=== PATIENT | male | born 1995 | race Caucasian/White ===

== ENCOUNTER → 2017-12-12 | Outpatient (CLI) | payer OTHER ==
[2017-12-12 12:54] LABS: BASOPHILS ABSOLUTE AUTO 0.04 K/mm3 (0.00-0.23); BASOPHILS PERCENT AUTO 0 % (0-2); EOSINOPHILS ABSOLUTE AUTO 0.19 K/mm3 (0.00-0.68); EOSINOPHILS PERCENT AUTO 2 % (0-6); Hematocrit 42.1 % (37.0-53.0); Hemoglobin 14.5 g/dL (13.5-17.5); IMMATURE GRAN ABSOLUTE AUTO 0.03 K/mm3 (0.00-0.10); IMMATURE GRAN PERCENT AUTO 0 % (0-1); LYMPHOCYTES ABSOLUTE AUTO 3.37 K/mm3 (0.84-5.20); LYMPHOCYTES PERCENT AUTO 38 % (21-46); MONOCYTES ABSOLUTE AUTO 0.55 K/mm3 (0.16-1.47); MONOCYTES PERCENT AUTO 6 % (4-13); Mean Corpuscular HGB 30.1 pg (26.0-34.0); Mean Corpuscular HGB Conc 34.4 g/dL (31.5-36.5); Mean Corpuscular Volume 87 fL (80-100); Mean Platelet Volume 12.4 fL (9.1-12.4); NEUTROPHILS ABSOLUTE AUTO 4.79 K/mm3 (1.96-9.15); NEUTROPHILS PERCENT AUTO 54 % (41-73); Platelet Count 168 K/mm3 (150-400); Red Blood Cell Count 4.82 M/mm3 (4.30-5.90); White Blood Cell Count 8.97 K/mm3 (4.00-11.30)
== END ==
LOC: LAB SHORT 12:49 → LAB EV 12:49
PROVIDERS: Physician Assistant
DX: M54.2 Cervicalgia (principal)
CPT/HCPCS: 85025

== ENCOUNTER 2018-09-23 10:32 | Observation (INO) | payer OTHER ==
[~2018-09-23] VITALS: Ht 188 cm; Wt 81.7 kg
[2018-09-23 11:35] LABS: BASOPHILS ABSOLUTE AUTO 0.02 K/mm3 (0.00-0.23); BASOPHILS PERCENT AUTO 0 % (0-2); EOSINOPHILS ABSOLUTE AUTO 0.08 K/mm3 (0.00-0.68); EOSINOPHILS PERCENT AUTO 1 % (0-6); Hematocrit 48.1 % (37.0-53.0); Hemoglobin 17.4 g/dL (13.5-17.5); IMMATURE GRAN ABSOLUTE AUTO 0.05 K/mm3 (0.00-0.10); IMMATURE GRAN PERCENT AUTO 1 % (0-1); LYMPHOCYTES ABSOLUTE AUTO 2.22 K/mm3 (0.84-5.20); LYMPHOCYTES PERCENT AUTO 23 % (21-46); MONOCYTES PERCENT AUTO 7 % (4-13); Mean Corpuscular HGB 32.2 pg (26.0-34.0); Mean Corpuscular HGB Conc 36.2 g/dL (31.5-36.5); Mean Corpuscular Volume 89 fL (80-100); Mean Platelet Volume 12.8 fL (9.1-12.4); NEUTROPHILS PERCENT AUTO 69 % (41-73); Platelet Count 177 K/mm3 (150-400); RDW Coefficient Variation 12.1 % (11.7-14.2); RDW Standard Deviation 39.5 fL (35.1-46.3); Red Blood Cell Count 5.41 M/mm3 (4.30-5.90); White Blood Cell Count 9.87 K/mm3 (4.00-11.30)
[2018-09-23 11:53] LABS: Alanine Aminotransfer (ALT/SGP 21 U/L (12-78); Albumin, Blood 4.1 g/dL (3.4-5.0); Albumin/Globulin Ratio 1.1 (0.8-1.8); Alk Phos 79 U/L (50-136); Anion Gap 9 mmol/L (6-16); Aspartate Aminotrans (AST/SGOT 13 U/L (12-37); Blood Urea Nitrogen 7 mg/dL (8-24); Bun/Creatinine Ratio 7.5 (12.0-20.0); CO2, Blood 23 mmol/L (21-32); Chloride, Blood 108 mmol/L (98-108); Creatinine, Blood 0.94 mg/dL (0.60-1.20); Ethanol (Alcohol), Blood, Med <3 mg/dL; Globulin, Blood 3.8 g/dL (2.2-4.0); Glomerular Filtration Rate >60 (60-); Glucose, Blood 108 mg/dL (70-99); Potassium, Blood 3.2 mmol/L (3.5-5.5); Sodium, Blood 140 mmol/L (136-145); Total Protein, Blood 7.9 g/dL (6.4-8.2)
[2018-09-23 12:01] LABS: Acetaminophen, Random <2.0 ug/mL (10.0-30.0)
[2018-09-23 15:53] LABS: Source, Urine Clean Catch
[2018-09-23 16:06] LABS: Appearance, Urine Cloudy (Clear); Bilirubin, Urine Neg (Neg); Blood, Urine Neg (Neg); Color, Urine Yellow (P-Yellow); Glucose Qualitative, Urine Neg (Neg); Ketones, Urine Neg (Neg); Leukocyte Esterase, Urine Neg (Neg); Nitrite, Urine Neg (Neg); Protein, Urine Neg (Neg); Specific Gravity, Urine 1.015 (1.003-1.022); Urobilinogen, Urine NORM (Normal)
[2018-09-23 16:14] LABS: Bacteria Rare /hpf; Red Blood Cells, Urine Not Seen /hpf (0-2); Squamous Epithelial Cells Rare /hpf (Few); White Blood Cells, Urine Not Seen /hpf (0-5)
[2018-09-23 16:23] LABS: U Amphetamine Screen Not Detected; U Barbituate Screen Not Detected; U Benzodiazapine Screen Not Detected; U Buprenorphine Screen Not Detected; U Cannabinoids Screen DETECTED; U Cocaine Screen Not Detected; U Methadone Screen Not Detected; U Methamphetamine Screen Not Detected; U Opiates Screen Not Detected; U Oxycodone Screen Not Detected; U Phencyclidine Screen Not Detected; U Propoxyphene Screen Not Detected
== END 2018-09-25 20:15 ==
LOC: ER 10:32 → EOR 10:33
PROVIDERS: ADMIT Emergency Medicine
DX: F23 Brief psychotic disorder (principal); F12.99 Cannabis use, unspecified with unspecified cannabis-induced disorder; Z79.899 Other long term (current) drug therapy
CPT/HCPCS: 36415; 80053; 81001; 84443; 85025; 96360; 99285-25; G0378; G0480; J7120; Q3014

== ENCOUNTER 2021-09-16 09:21 | Inpatient (IN) | payer OTHER ==
[~2021-09-16] VITALS: Ht 188 cm; Wt 111.1 kg
[2021-09-16 11:15] LABS: Troponin I <0.015 ng/mL (0.000-0.040)
[2021-09-16 11:16] LABS: Alanine Aminotransfer (ALT/SGP 130 U/L (12-78); Albumin, Blood 1.9 g/dL (3.4-5.0); Albumin/Globulin Ratio 0.3 (0.8-1.8); Alk Phos 306 U/L (50-136); Anion Gap 8 mmol/L (6-16); Aspartate Aminotrans (AST/SGOT 223 U/L (12-37); Bilirubin, Total 5.5 mg/dL (0.1-1.0); Blood Urea Nitrogen 5 mg/dL (8-24); Bun/Creatinine Ratio 5.9 (12.0-20.0); CO2, Blood 18 mmol/L (21-32); Calcium, Blood 9.4 mg/dL (8.5-10.1); Chloride, Blood 93 mmol/L (98-108); Creatinine, Blood 0.85 mg/dL (0.60-1.20); Globulin, Blood 6.6 g/dL (2.2-4.0); Glomerular Filtration Rate >60 (60-); Glucose, Blood 100 mg/dL (70-99); Potassium, Blood 5.6 mmol/L (3.5-5.5); Sodium, Blood 119 mmol/L (136-145); Total Protein, Blood 8.5 g/dL (6.4-8.2)
[2021-09-16 11:39] LABS: Influenza A, PCR NEGATIVE (NEGATIVE); Influenza B, PCR NEGATIVE (NEGATIVE); Resp Syncytial Virus, PCR NEGATIVE (NEGATIVE); SARS-Cov-2 (COVID-19) PCR, MMC NEGATIVE (NEGATIVE)
[2021-09-16 11:51] LABS: Hematocrit 41.8 % (37.0-53.0); Hemoglobin 14.8 g/dL (13.5-17.5); Mean Corpuscular HGB 37.2 pg (26.0-34.0); Mean Corpuscular HGB Conc 35.4 g/dL (31.5-36.5); Mean Corpuscular Volume 105 fL (80-100); RDW Coefficient Variation 17.8 % (11.7-14.2); RDW Standard Deviation 66.6 fL (35.1-46.3); Red Blood Cell Count 3.98 M/mm3 (4.30-5.90)
[2021-09-16 12:32] LABS: White Blood Cell Count 12.93 K/mm3 (4.00-11.30)
[2021-09-16 12:33] LABS: NRBC ABSOLUTE 0.08 K/mm3 (0.00-0.02); NRBC Auto 0.6 /100 WBC (0.0-0.2); Platelet Count 48 K/mm3 (150-400)
[2021-09-16 12:38] LABS: BAND PERCENT MAN 11 % (0-8); BASOPHILS PERCENT MAN 0 % (0-2); EOSINOPHILS PERCENT MAN 0 % (0-6); LYMPHOCYTES ABSOLUTE MAN 1.03 K/mm3 (0.84-5.20); LYMPHOCYTES PERCENT MAN 8 % (21-46); METAMYELOCYTE ABSOLUTE MAN 0.12 K/mm3 (0.00-0.00); METAMYELOCYTE PERCENT MAN 1 % (0-0); MONOCYTES ABSOLUTE MAN 0.77 K/mm3 (0.16-1.47); MONOCYTES PERCENT MAN 6 % (4-13); MYELOCYTE ABSOLUTE MAN 0.25 K/mm3 (0.00-0.00); MYELOCYTE PERCENT MAN 2 % (0-0); NEUTROPHILS ABSOLUTE MAN 10.73 K/mm3 (1.96-9.15); SEG NEUTROPHILS PERCENT MAN 72 % (41-73); TOTAL CELLS COUNTED 100
[2021-09-16] MEDS ORDERED: LATUDA PO (12:51)
[2021-09-16] MEDS ORDERED: QUETIAPINE FUM200 M8 PO (12:52)
[2021-09-16] MEDS ORDERED: CATAPRES0.1 MG PO (12:52)
[2021-09-16 13:29] LABS: International Normalized Ratio 1.53; Prothrombin Time Results 15.6 Sec (9.7-11.5)
[2021-09-16 13:52] LABS: Ethanol (Alcohol), Blood, Med <3 mg/dL
[2021-09-16 13:56] LABS: Acetaminophen, Random <2.0 ug/mL (10.0-30.0)
--- NOTE | 2021-09-16 16:00 | NUR ---
ADMIT NOTE PT ADMITTED FOR ALCOHOLIC HEP, REPORT RECIEVED FROM ER AND PT ARRIVED TO ROOM VIA W/C AND TRANSFERRED IND TO TO BED. PT ORIENTED TO ROOM, CALL LIGHT SYSTEM, PHONE AND BED CONTROLS. PT ACCOMPANNIED BY FATHER AND ADMIT HISTORY AND MED LIST COMPLETED. PT SCORED 12 ON CIWA AND WAS MEDICATED PER EMAR WITH ATIVAN. PT WAS INSTRUCTED TO CALL FOR ANY ASSISTANCE UP OUT OF BED. PT APPEARS TO BE RESTING COMFORTABLY, BED IN LOWEST POSITION, BED EXIT ALARM INITIATED AND CALL LIGHT WITHIN REACH.
[2021-09-16 16:04] LABS: Albumin, Blood 1.8 g/dL (3.4-5.0); Anion Gap 8 mmol/L (6-16); Blood Urea Nitrogen 5 mg/dL (8-24); Bun/Creatinine Ratio 5.5 (12.0-20.0); CO2, Blood 19 mmol/L (21-32); Calcium, Blood 8.5 mg/dL (8.5-10.1); Chloride, Blood 94 mmol/L (98-108); Creatinine, Blood 0.91 mg/dL (0.60-1.20); Glomerular Filtration Rate >60 (60-); Glucose, Blood 106 mg/dL (70-99); Potassium, Blood 4.6 mmol/L (3.5-5.5); Sodium, Blood 121 mmol/L (136-145)
[2021-09-16 17:44] LABS: U Amphetamine Screen Not Detected; U Barbituate Screen Not Detected; U Benzodiazapine Screen DETECTED; U Buprenorphine Screen Not Detected; U Cannabinoids Screen DETECTED; U Cocaine Screen Not Detected; U Methadone Screen Not Detected; U Methamphetamine Screen Not Detected; U Opiates Screen Not Detected; U Oxycodone Screen Not Detected; U Phencyclidine Screen Not Detected; U Propoxyphene Screen Not Detected
[2021-09-16] MEDS ORDERED: OMEP20ER PO (18:08)
[2021-09-16] MEDS ORDERED: IBUP800 PO (18:08)
[2021-09-17 05:08] LABS: BASOPHILS ABSOLUTE AUTO 0.05 K/mm3 (0.00-0.23); BASOPHILS PERCENT AUTO 0 % (0-2); EOSINOPHILS ABSOLUTE AUTO 0.07 K/mm3 (0.00-0.68); EOSINOPHILS PERCENT AUTO 1 % (0-6); Hematocrit 36.6 % (37.0-53.0); Hemoglobin 12.9 g/dL (13.5-17.5); IMMATURE GRAN ABSOLUTE AUTO 0.65 K/mm3 (0.00-0.10); IMMATURE GRAN PERCENT AUTO 5 % (0-1); LYMPHOCYTES ABSOLUTE AUTO 2.29 K/mm3 (0.84-5.20); LYMPHOCYTES PERCENT AUTO 17 % (21-46); MONOCYTES ABSOLUTE AUTO 1.86 K/mm3 (0.16-1.47); MONOCYTES PERCENT AUTO 14 % (4-13); Mean Corpuscular HGB Conc 35.2 g/dL (31.5-36.5); Mean Corpuscular Volume 105 fL (80-100); NEUTROPHILS ABSOLUTE AUTO 8.32 K/mm3 (1.96-9.15); NEUTROPHILS PERCENT AUTO 63 % (41-73); NRBC ABSOLUTE 0.07 K/mm3 (0.00-0.02); NRBC Auto 0.5 /100 WBC (0.0-0.2); RDW Coefficient Variation 18.3 % (11.7-14.2); RDW Standard Deviation 67.7 fL (35.1-46.3); Red Blood Cell Count 3.49 M/mm3 (4.30-5.90); White Blood Cell Count 13.24 K/mm3 (4.00-11.30)
[2021-09-17 05:24] LABS: Platelet Count 45 K/mm3 (150-400)
[2021-09-17 06:29] LABS: Alanine Aminotransfer (ALT/SGP 106 U/L (12-78); Albumin, Blood 1.6 g/dL (3.4-5.0); Albumin/Globulin Ratio 0.3 (0.8-1.8); Alk Phos 249 U/L (50-136); Anion Gap 10 mmol/L (6-16); Aspartate Aminotrans (AST/SGOT 172 U/L (12-37); Bilirubin, Total 4.6 mg/dL (0.1-1.0); Blood Urea Nitrogen 7 mg/dL (8-24); Bun/Creatinine Ratio 6.1 (12.0-20.0); CO2, Blood 20 mmol/L (21-32); Calcium, Blood 8.7 mg/dL (8.5-10.1); Chloride, Blood 96 mmol/L (98-108); Creatinine, Blood 1.15 mg/dL (0.60-1.20); Globulin, Blood 5.2 g/dL (2.2-4.0); Glomerular Filtration Rate >60 (60-); Glucose, Blood 83 mg/dL (70-99); Magnesium, Blood 1.4 mg/dL (1.6-2.4); Phosphorus, Blood 3.1 mg/dL (2.5-4.9); Potassium, Blood 4.6 mmol/L (3.5-5.5); Sodium, Blood 126 mmol/L (136-145); Total Protein, Blood 6.8 g/dL (6.4-8.2)
[2021-09-17 15:36] LABS: International Normalized Ratio 1.41; Prothrombin Time Results 14.5 Sec (9.7-11.5)
--- NOTE | 2021-09-17 17:28 | NUR ---
SHIFT SUMMARY 25 Y MALE PT ADMITTED FOR ALCOHOL HEP. PT HAS BEEN DROWSY T/O SHIFT, ABLE TO ANSWER QUESTION APPROPRIATELY BY VERY FORGETFULL AND IMPULSIVE. PT CONT TO TRY AND GET UP OUT OF BED WITHOUT ASSISTANCE AND STAGGERED AROUNG ROOM, GETTING TANGLED UP IN BLANKETS AND IV. PT DID HAVE DIARRHEA EARLY IN THE SHIFT AND WAS ATTEMPTING TO GET TO THE BATHROOM BUT WAS INC OF BOWELS. PT WAS SHOWRED AND ROOM AND BATHROOM CLEANED. PT PULLED 2 IV'S OUT DURING SHIFT. PT CONT SCORING 12 ON HIS CIWA ASSESSMENT AND WAS FOUND TO BE TACHY IN THE 120'S WITH A RESP RATE OF 24. MD NOTIFIED AND NEW ORDERS RECEIVED AND IMPLEMENTED. PT PUT IN A ADDIE VEST RESTRAINT FOR HIS SAFETY AND TO PROTECT PT LINES. VEST RESTRAINT EXPLAINED TO PT AND HIS FAMILY AT BEDSIDE AND THEY BOTH VERBALIZXED UNDERSTANDING AND AGREED. PT HAS BEEN MEDICATED PER EMAR TO MANAGE ETOH W/DRAWL SYMPTOMS. RT WAS CONSULTED AND IN TO EVAL, PT PLACED ON 2L N/C FOR COMFORT AND SOB. NO OTHER CHANGES TO REPORT THIS SHIFT.
--- NOTE | 2021-09-18 01:44 | NUR ---
IMPULSIVE/CONFUSED *LATE ENTRY* AT BEGINNING OF SHIFT PT WAS FOUND IN RESTROOM BY LOCATION DIRECTOR COVERED IN BM & BLOOD ALLOVER BODY & FLOOR. PT HAD DISCONNECTED IV & TAKEN ADDIE OFF TO GET HIMSELF IN SHOWER. PT VERY CONFUSED. HE WAS CLEANED UP, GIVEN IV ATIVAN FOR FEELING ANXIOUS & CIWA @14. BED ALARM & ADDIE PLACED FOR SAFETY. WILL MONITOR.
--- NOTE | 2021-09-18 04:06 | NUR ---
SHIFT SUMMARY AOX3-SELF, PLACE, SITUATION. UNAWARE DATE & FORGETFUL. IMPULSIVE. HAS DIFFICULTY FOLLOWING DIRECTIONS @TIMES. VSS. TELE ST HR 118. SPO2 >90% ON 2L O2. REPORTS MCELROY, MILD NAUSEA, HAS TREMORS, LIGHT SENSITIVITY, ANXIOUS, RESTLESS. CIWA RANGING 7-14, MEDICATED 2X c 2MG IV ATIVAN & 1X c SCHEDULED LIBRIUM. PT ABLE TO REST WELL MOST OF NIGHT. ABD MOD DISTENDED, PT HAD 2 LIQUID INCONT STOOLS THIS SHIFT. PLAN TO HAVE PARACENTESIS TODAY 09/18/20. CALL LIGHT & BED ALARM IN PLACE FOR SAFETY. WCTM UNTIL DAY NURSE ASSUMES CARE.
[2021-09-18 04:49] LABS: BASOPHILS ABSOLUTE AUTO 0.08 K/mm3 (0.00-0.23); BASOPHILS PERCENT AUTO 1 % (0-2); EOSINOPHILS ABSOLUTE AUTO 0.08 K/mm3 (0.00-0.68); EOSINOPHILS PERCENT AUTO 1 % (0-6); Hematocrit 36.7 % (37.0-53.0); Hemoglobin 12.8 g/dL (13.5-17.5); IMMATURE GRAN ABSOLUTE AUTO 0.71 K/mm3 (0.00-0.10); IMMATURE GRAN PERCENT AUTO 5 % (0-1); LYMPHOCYTES ABSOLUTE AUTO 2.17 K/mm3 (0.84-5.20); LYMPHOCYTES PERCENT AUTO 16 % (21-46); MONOCYTES PERCENT AUTO 12 % (4-13); Mean Corpuscular HGB 36.5 pg (26.0-34.0); Mean Corpuscular HGB Conc 34.9 g/dL (31.5-36.5); Mean Corpuscular Volume 105 fL (80-100); NEUTROPHILS ABSOLUTE AUTO 9.09 K/mm3 (1.96-9.15); NEUTROPHILS PERCENT AUTO 66 % (41-73); NRBC ABSOLUTE 0.07 K/mm3 (0.00-0.02); NRBC Auto 0.5 /100 WBC (0.0-0.2); RDW Coefficient Variation 18.8 % (11.7-14.2); RDW Standard Deviation 69.7 fL (35.1-46.3); Red Blood Cell Count 3.51 M/mm3 (4.30-5.90); White Blood Cell Count 13.83 K/mm3 (4.00-11.30)
[2021-09-18 04:59] LABS: Platelet Count 46 K/mm3 (150-400)
[2021-09-18 06:09] LABS: Alanine Aminotransfer (ALT/SGP 110 U/L (12-78); Albumin, Blood 1.7 g/dL (3.4-5.0); Albumin/Globulin Ratio 0.3 (0.8-1.8); Alk Phos 232 U/L (50-136); Anion Gap 8 mmol/L (6-16); Aspartate Aminotrans (AST/SGOT 173 U/L (12-37); Bilirubin, Direct 3.8 mg/dL (0.0-0.3); Bilirubin, Indirect 0.9 mg/dL (0.1-0.7); Bilirubin, Total 4.7 mg/dL (0.1-1.0); Blood Urea Nitrogen 10 mg/dL (8-24); Bun/Creatinine Ratio 9.7 (12.0-20.0); CO2, Blood 21 mmol/L (21-32); Calcium, Blood 8.4 mg/dL (8.5-10.1); Chloride, Blood 97 mmol/L (98-108); Creatinine, Blood 1.03 mg/dL (0.60-1.20); Globulin, Blood 5.1 g/dL (2.2-4.0); Glomerular Filtration Rate >60 (60-); Glucose, Blood 86 mg/dL (70-99); Magnesium, Blood 1.8 mg/dL (1.6-2.4); Phosphorus, Blood 3.7 mg/dL (2.5-4.9); Potassium, Blood 4.1 mmol/L (3.5-5.5); Sodium, Blood 126 mmol/L (136-145); Total Protein, Blood 6.8 g/dL (6.4-8.2)
--- NOTE | 2021-09-18 17:07 | NUR ---
SHIFT SUMMARY PATIENT DENIES PAIN. PATIENT REPORTS NAUSEA AND HEARTBURN, DR. ALTMAN NOTIFIED, NEW ORDER FOR PRILOSEC. PATIENT REPORTS OCCASSIONAL SHORTNESS OF BREATH. PATIENT ON 2L OF O2, MAINTAINING SATS ABOVE 90%. PARACENTESIS CANCELLED DUE TO SMALL AMOUNT OF FLUID IN ABDOMEN. PATIENT MEDICATED X2 WITH ATIVAN PER CIWA PROTOCOL. CIWA DONE AT 1600 WAS 7. PATIENT HAD MULTIPLE LOOSE STOOLS. PATIENT IS 2 PERSON ASSIST TO BATHROOM DUE TO BEING VERY UNSTEADY. PATIENT IS TOLERATING MORE PO INTAKE TODAY. PATIENT MOTHER VISITED IN AFTERNOON, BROUGHT PATIENT FOOD. PATIENT STILL IN A ADDIE RESTRAINT. PATIENT IS PLEASANT AND COOPERATIVE WITH CARE.
[2021-09-19 04:46] LABS: BASOPHILS ABSOLUTE AUTO 0.09 K/mm3 (0.00-0.23); BASOPHILS PERCENT AUTO 1 % (0-2); EOSINOPHILS ABSOLUTE AUTO 0.08 K/mm3 (0.00-0.68); EOSINOPHILS PERCENT AUTO 1 % (0-6); Hematocrit 35.7 % (37.0-53.0); Hemoglobin 12.6 g/dL (13.5-17.5); IMMATURE GRAN ABSOLUTE AUTO 0.69 K/mm3 (0.00-0.10); IMMATURE GRAN PERCENT AUTO 5 % (0-1); LYMPHOCYTES ABSOLUTE AUTO 2.26 K/mm3 (0.84-5.20); LYMPHOCYTES PERCENT AUTO 16 % (21-46); MONOCYTES ABSOLUTE AUTO 1.79 K/mm3 (0.16-1.47); MONOCYTES PERCENT AUTO 13 % (4-13); Mean Corpuscular HGB 37.6 pg (26.0-34.0); Mean Corpuscular HGB Conc 35.3 g/dL (31.5-36.5); Mean Corpuscular Volume 107 fL (80-100); NEUTROPHILS ABSOLUTE AUTO 9.03 K/mm3 (1.96-9.15); NEUTROPHILS PERCENT AUTO 65 % (41-73); NRBC ABSOLUTE 0.06 K/mm3 (0.00-0.02); NRBC Auto 0.4 /100 WBC (0.0-0.2); Red Blood Cell Count 3.35 M/mm3 (4.30-5.90); White Blood Cell Count 13.94 K/mm3 (4.00-11.30)
[2021-09-19 04:58] LABS: Platelet Count 46 K/mm3 (150-400)
[2021-09-19 05:32] LABS: Magnesium, Blood 1.8 mg/dL (1.6-2.4)
[2021-09-19 05:33] LABS: Alanine Aminotransfer (ALT/SGP 105 U/L (12-78); Albumin, Blood 1.6 g/dL (3.4-5.0); Albumin/Globulin Ratio 0.3 (0.8-1.8); Alk Phos 232 U/L (50-136); Anion Gap 8 mmol/L (6-16); Aspartate Aminotrans (AST/SGOT 173 U/L (12-37); Bilirubin, Direct 3.4 mg/dL (0.0-0.3); Bilirubin, Indirect 0.9 mg/dL (0.1-0.7); Bilirubin, Total 4.3 mg/dL (0.1-1.0); Blood Urea Nitrogen 13 mg/dL (8-24); Bun/Creatinine Ratio 14.1 (12.0-20.0); CO2, Blood 23 mmol/L (21-32); Calcium, Blood 8.3 mg/dL (8.5-10.1); Chloride, Blood 99 mmol/L (98-108); Creatinine, Blood 0.92 mg/dL (0.60-1.20); Globulin, Blood 5.2 g/dL (2.2-4.0); Glomerular Filtration Rate >60 (60-); Glucose, Blood 83 mg/dL (70-99); Phosphorus, Blood 3.9 mg/dL (2.5-4.9); Potassium, Blood 3.7 mmol/L (3.5-5.5); Sodium, Blood 130 mmol/L (136-145); Total Protein, Blood 6.8 g/dL (6.4-8.2)
--- NOTE | 2021-09-19 06:57 | NUR ---
SHIFT SUMMARY PT IS A 25 Y/O MALE, ADMITTED FOR ALCOHOLIC HEPATITIS AND ETOH WITHDRAWAL. HE IS A&O X 3, LETHARGIC THROUGH THE NIGHT. CIWA 6-7 THROUGH THE NIGHT. PT MEDICATED WITH SCHEDULED LIBRIUM. NO C/O PAIN, NAUSEA OR SOB. PT IS ON 2L O2, THOUGH DOES NOT KEEP IT ON DURING THE NIGHT. TELE SHOWED ST IN THE 110-120S. VITAL SIGNS STABLE. PT WAS REMOVED FROM ADDIE VEST APPROXIMATELY 0000. BED ALARM ON. NO OTHER ACUTE CHANGES IN PT CONDITION NOTED DURING THE NIGHT. WILL CONTINUE TO MONITOR AND TREAT PER EMAR UNTIL HAND OFF TO DAY SHIFT RN.
--- NOTE | 2021-09-19 18:00 | NUR ---
SHIFT SUMMARY PT A&O X4 AND IN PLEASENT MOOD T/O SHIFT. PT MOM @ BEDSIDE T/O EVENING HOURS, PROVIDED FOOT RUB TO PT FOR COMFORT. PT MOM AND PT BOTH VERBALIZED THAT IT IS OK TO TALK TO PT'S DAD, MIKA. PT MEDICATED PER CIWA T/O SHIFT, PT VERBALIZED FEELINGS OF ANXIETY AND REPORTS "SEEING HIS DOG". TOLERATING PO INTAKE, INCREASED STABILITY W/ AMBULATION T/O SHIFT. SINUS TACH T/O SHIFT PER TELE MONITOR.
[2021-09-19 19:29] LABS: Adenovirus F 40/41 Not Detected (NOT DETECT); Astrovirus Not Detected (NOT DETECT); Campylobacter Sp Not Detected (NOT DETECT); Cryptosporidium Not Detected (NOT DETECT); Cyclospora Cayetanensis Not Detected (NOT DETECT); E. Coli O157 Not Detected (NOT DETECT); Entamoeba Histolytica Not Detected (NOT DETECT); Enteroaggregative E. coli-EAEC Not Detected (NOT DETECT); Enteropathogenic E. coli-EPEC Not Detected (NOT DETECT); Enterotoxigenic E. coli-ETEC Not Detected (NOT DETECT); Giardia Lamblia Not Detected (NOT DETECT); Norovirus GI/GII Not Detected (NOT DETECT); Plesiomonas Shigelloides Not Detected (NOT DETECT); Rotavirus A Not Detected (NOT DETECT); Salmonella Sp Not Detected (NOT DETECT); Sapovirus Not Detected (NOT DETECT); Shiga Toxin-prod E. coli-STEC Not Detected (NOT DETECT); Shigella/Enteroin E. coli-EIEC Not Detected (NOT DETECT); Vibrio Cholerae Not Detected (NOT DETECT); Vibrio Sp Not Detected (NOT DETECT); Yersinia Enterocolitica Not Detected (NOT DETECT)
[2021-09-20 04:58] LABS: BASOPHILS ABSOLUTE AUTO 0.09 K/mm3 (0.00-0.23); BASOPHILS PERCENT AUTO 1 % (0-2); EOSINOPHILS ABSOLUTE AUTO 0.07 K/mm3 (0.00-0.68); EOSINOPHILS PERCENT AUTO 1 % (0-6); Hematocrit 37.5 % (37.0-53.0); Hemoglobin 12.8 g/dL (13.5-17.5); IMMATURE GRAN ABSOLUTE AUTO 0.46 K/mm3 (0.00-0.10); IMMATURE GRAN PERCENT AUTO 4 % (0-1); LYMPHOCYTES ABSOLUTE AUTO 1.92 K/mm3 (0.84-5.20); LYMPHOCYTES PERCENT AUTO 19 % (21-46); MONOCYTES ABSOLUTE AUTO 1.11 K/mm3 (0.16-1.47); MONOCYTES PERCENT AUTO 11 % (4-13); Mean Corpuscular HGB 36.9 pg (26.0-34.0); Mean Corpuscular HGB Conc 34.1 g/dL (31.5-36.5); Mean Corpuscular Volume 108 fL (80-100); NEUTROPHILS ABSOLUTE AUTO 6.69 K/mm3 (1.96-9.15); NEUTROPHILS PERCENT AUTO 65 % (41-73); NRBC ABSOLUTE 0.06 K/mm3 (0.00-0.02); NRBC Auto 0.6 /100 WBC (0.0-0.2); RDW Coefficient Variation 19.5 % (11.7-14.2); RDW Standard Deviation 75.5 fL (35.1-46.3); Red Blood Cell Count 3.47 M/mm3 (4.30-5.90); White Blood Cell Count 10.34 K/mm3 (4.00-11.30)
[2021-09-20 05:18] LABS: Platelet Count 44 K/mm3 (150-400)
--- NOTE | 2021-09-20 05:26 | NUR ---
SHIFT SUMMARY AOX3. FOLLOWS SIMPLE DIRECTIONS. REPORTED 8/10 BACK PAIN, MEDICATED 1X c 25MCG FENTANYL, STATED RELIEF. VSS. TELE ST @108. SPO2 @96% ON 3L O2, WILL TITRATE DOWN. GETS DYSPNIC c MINIMAL ACTIVITY, HAS OCC PRODUCTIVE CONGESTIVE COUGH. CIWA AT 7, MEDICATED c SCHEDULED LIBRIUM. REPORTS VISUAL HALLUCINATIONS, STATES HE SEES HIS DOG IN HIS RM OCCASIONALLY. GI PANEL NEG. CRITICAL PLATELET THIS AM @44, INFORMED CHARGE NURSE NERI Dewey, WILL INFORM DAY NURSE. WCTM UNTIL DAY NURSE ASSUMES CARE.
[2021-09-20 06:07] LABS: Albumin, Blood 1.6 g/dL (3.4-5.0); Anion Gap 8 mmol/L (6-16); Blood Urea Nitrogen 11 mg/dL (8-24); Bun/Creatinine Ratio 12.9 (12.0-20.0); CO2, Blood 25 mmol/L (21-32); Calcium, Blood 8.3 mg/dL (8.5-10.1); Chloride, Blood 101 mmol/L (98-108); Creatinine, Blood 0.85 mg/dL (0.60-1.20); Glomerular Filtration Rate >60 (60-); Glucose, Blood 83 mg/dL (70-99); Magnesium, Blood 1.8 mg/dL (1.6-2.4); Phosphorus, Blood 3.7 mg/dL (2.5-4.9); Potassium, Blood 3.4 mmol/L (3.5-5.5); Sodium, Blood 134 mmol/L (136-145)
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
--- NOTE | 2021-09-21 04:29 | NUR ---
SHIFT SUMMARY NO ACUTE CHANGES THIS SHIFT. AOX3, FORGETFUL @TIMES. SLOW TO RESPOND. VERY WEAK & DECONDITIONED. GET DYSPNIC c ACTIVITY SUCH STANDING TO USE BSC. SPO2 @ 85% ON RA, SPO2 >90% ON 2L O2. LS DIM. LABOURED BREATHING c ACTIVITY. REST VITALS STABLE. TELE ST HR 115 BEFORE DC'D. CIWA 6 TONIGHT. VERY UNSTEADY GAIT. ABD MOD DISTENDED & TENDER TO PALPATION. ACTIVE BT. DENIES N/V. HAD EPISODE LIQUID BM TONIGHT. REPORTS FEELING ANXIOUS ABOUT GOING TO ETOH REHAB, GAVE PO ATIVAN. CALL LIGHT IN REACH. WCTM.
[2021-09-21 08:53] LABS: Anion Gap 6 mmol/L (6-16); Blood Urea Nitrogen 10 mg/dL (8-24); Bun/Creatinine Ratio 12.9 (12.0-20.0); CO2, Blood 27 mmol/L (21-32); Calcium, Blood 7.9 mg/dL (8.5-10.1); Chloride, Blood 101 mmol/L (98-108); Creatinine, Blood 0.78 mg/dL (0.60-1.20); Glomerular Filtration Rate >60 (60-); Glucose, Blood 123 mg/dL (70-99); Potassium, Blood 3.1 mmol/L (3.5-5.5); Sodium, Blood 134 mmol/L (136-145)
--- NOTE | 2021-09-21 14:12 | NUR ---
echocardiogram complete
--- NOTE | 2021-09-21 16:50 | NUR ---
PT IS A/OX3, PLEASANT AND COOPERATIVE. UP IND TO THE BATHROOM. PT DENIED ANY PAIN T/O THE DAY. THE PT WALKED THROUGH THE [place]EN TODAY USING THE FWW WITH THE RESPIRATORY THERAPIST HIS O2 SAT'S STAYED AT 92% THROUGHOUT THE WALK. THE PT WAS TO BE DISCHARGED TODAY PENDING ECHO RESULTS , HOWEVER THE PT REPORTED THAT HE FLET TO WEAK TO GO HOME AT THIS TIME. DR. TAVARES WAS CALLED AND THE PT'S DC WAS POSTPONED. PTS FATHER IS AT THE BEDSIDE. CALL LIGHT IN REACH. WILL CONTINUE TO MONITOR AND ASSESS FOR CHANGES
--- NOTE | 2021-09-22 04:19 | NUR ---
SHIFT SUMMARY: PT IS A/OX4. INDEPENDENT IN ROOM. USES CALL LIGHT FOR NEEDS. POSSIBLE DC TODAY. ON RA, NO TELE, NO IV. NO OTHER NEW CHANGES TO REPORT.
[2021-09-22 05:48] LABS: Anion Gap 6 mmol/L (6-16); Blood Urea Nitrogen 9 mg/dL (8-24); Bun/Creatinine Ratio 12.1 (12.0-20.0); CO2, Blood 27 mmol/L (21-32); Calcium, Blood 8.1 mg/dL (8.5-10.1); Chloride, Blood 101 mmol/L (98-108); Creatinine, Blood 0.74 mg/dL (0.60-1.20); Glomerular Filtration Rate >60 (60-); Glucose, Blood 84 mg/dL (70-99); Potassium, Blood 3.3 mmol/L (3.5-5.5); Sodium, Blood 134 mmol/L (136-145)
[2021-09-22] MEDS ORDERED: NICO21TP TOP (09:58)
[2021-09-22] MEDS ORDERED: Promod946 ML PO (09:59)
[2021-09-22] MEDS ORDERED: CHLO10 PO (09:59)
[2021-09-22] MEDS ORDERED: AMOCLA875 PO (09:59)
[2021-09-22] MEDS ORDERED: FURO40 PO (10:00)
[2021-09-22] MEDS ORDERED: POTA10T PO (10:00)
--- NOTE | 2021-09-22 12:21 | NUR ---
PT DISCHARGED THE PT VERBALIZED UNDERSTANDING OF THE DC INSTRUCTIONS. A FOLLOW UP APPOINTMENT WITH HIS PCP WAS MADE PRIOR TO DC. THE PTS WAS GIVEN A PRESCRIPTION FOR LIBRIUM. THE PTS OTER MEDICATIONS WERE FAXED TO HIS PHARMACY. THE PT WAS REMINDED TO CONTACT [facility] FOR ALCOHOL CESSATION [place]. THE PT WAS TRANSFERED VIA WHEELCHAIR ACCOMPANIED BY HIS MOTHER AND HIS AUNT. PT WAS A/O AT THE TIME OF DC. APPEARED TO BE BREATHING EASILY ON RA
== END 2021-09-22 12:08 | disposition home or self-care (01) | DRG 871 ==
LOC: ER 09:21 → ERHOLD 15:07 → MEDS 17:55
PROVIDERS: Family Medicine; Internal Medicine; Physician Assistant; Student in an Organized Health Care Education/Training Program; ADMIT Internal Medicine
PROC: HZ2ZZZZ Detoxification Services for Substance Abuse Treatment (ICD-10-PCS; principal; 2021-09-16)
PROC: 3E02340 Introduction of Influenza Vaccine into Muscle, Percutaneous Approach (ICD-10-PCS; 2021-09-16)
DX: A41.9 Sepsis, unspecified organism (principal); J18.9 Pneumonia, unspecified organism; J96.01 Acute respiratory failure with hypoxia; J69.0 Pneumonitis due to inhalation of food and vomit; E87.1 Hypo-osmolality and hyponatremia; F10.239 Alcohol dependence with withdrawal, unspecified; J98.11 Atelectasis; F41.9 Anxiety disorder, unspecified; E66.9 Obesity, unspecified; Z68.31 Body mass index [BMI] 31.0-31.9, adult; Z78.1 Physical restraint status; Z23 Encounter for immunization; M10.9 Gout, unspecified; Z20.822 Contact with and (suspected) exposure to COVID-19; E88.09 Other disorders of plasma-protein metabolism, not elsewhere classified; F17.210 Nicotine dependence, cigarettes, uncomplicated; E87.5 Hyperkalemia; D69.59 Other secondary thrombocytopenia; D63.8 Anemia in other chronic diseases classified elsewhere; K70.11 Alcoholic hepatitis with ascites; Z71.41 Alcohol abuse counseling and surveillance of alcoholic; Z79.899 Other long term (current) drug therapy
CPT/HCPCS: 0097U; 0241U; 36415; 51701; 71046; 74176; 76705; 80048; 80053; 80069; 82248; 83605; 83615; 83690; 83735; 83880; 84100; 84145; 84484; 85025; 85610; 86850; 86900; 86901; 87040; 90686; 93005; 93010; 93306; 94640; 94760; 94761; 96374; 96375; 99285-25; A9270; G0480; J0295; J1940; J2060; J2405; J3010; J3475; J7050

== ENCOUNTER 2021-09-29 09:52 | Emergency (ER) | payer OTHER ==
[~2021-09-29] VITALS: Ht 188 cm; Wt 136.1 kg
[~2021-09-29 09:52] MED LIST: AMOCLA875 PO; CATAPRES0.1 MG PO; CHLO10 PO; FURO40 PO; IBUP800 PO; LATUDA PO; NICO21TP TOP; OMEP20ER PO; POTA10T PO; Promod946 ML PO; QUETIAPINE FUM200 M8 PO
[2021-09-29 10:46] LABS: BASOPHILS PERCENT AUTO 1 % (0-2); EOSINOPHILS ABSOLUTE AUTO 0.12 K/mm3 (0.00-0.68); EOSINOPHILS PERCENT AUTO 1 % (0-6); Hematocrit 41.8 % (37.0-53.0); Hemoglobin 13.8 g/dL (13.5-17.5); IMMATURE GRAN ABSOLUTE AUTO 0.08 K/mm3 (0.00-0.10); IMMATURE GRAN PERCENT AUTO 1 % (0-1); LYMPHOCYTES ABSOLUTE AUTO 2.09 K/mm3 (0.84-5.20); LYMPHOCYTES PERCENT AUTO 18 % (21-46); MONOCYTES ABSOLUTE AUTO 0.73 K/mm3 (0.16-1.47); MONOCYTES PERCENT AUTO 6 % (4-13); Mean Corpuscular Volume 112 fL (80-100); NEUTROPHILS ABSOLUTE AUTO 8.69 K/mm3 (1.96-9.15); NEUTROPHILS PERCENT AUTO 74 % (41-73); RDW Coefficient Variation 16.1 % (11.7-14.2); RDW Standard Deviation 68.4 fL (35.1-46.3); Red Blood Cell Count 3.73 M/mm3 (4.30-5.90); White Blood Cell Count 11.81 K/mm3 (4.00-11.30)
[2021-09-29 10:57] LABS: Platelet Count 40 K/mm3 (150-400)
[2021-09-29 11:01] LABS: Alanine Aminotransfer (ALT/SGP 78 U/L (12-78); Albumin, Blood 1.9 g/dL (3.4-5.0); Albumin/Globulin Ratio 0.3 (0.8-1.8); Alk Phos 141 U/L (50-136); Anion Gap 6 mmol/L (6-16); Aspartate Aminotrans (AST/SGOT 144 U/L (12-37); Bilirubin, Total 1.7 mg/dL (0.1-1.0); Blood Urea Nitrogen 7 mg/dL (8-24); Bun/Creatinine Ratio 10.3 (12.0-20.0); CO2, Blood 25 mmol/L (21-32); Calcium, Blood 8.3 mg/dL (8.5-10.1); Chloride, Blood 107 mmol/L (98-108); Creatinine, Blood 0.68 mg/dL (0.60-1.20); Globulin, Blood 5.6 g/dL (2.2-4.0); Glomerular Filtration Rate >60 (60-); Glucose, Blood 87 mg/dL (70-99); Potassium, Blood 4.4 mmol/L (3.5-5.5); Sodium, Blood 138 mmol/L (136-145); Total Protein, Blood 7.5 g/dL (6.4-8.2)
[2021-09-29] MEDS ORDERED: OXYC5 PO (12:41)
== END 2021-09-29 12:56 | disposition home or self-care (01) ==
LOC: ER 09:52
PROVIDERS: Physician Assistant
DX: R10.9 Unspecified abdominal pain (principal); F17.210 Nicotine dependence, cigarettes, uncomplicated
CPT/HCPCS: 36415; 80053; 83690; 85025; 93005; 93010; 99284-25; A9270

== ENCOUNTER → 2022-01-11 | Outpatient (CLI) | payer OTHER ==
[~2022-01-11] MED LIST changes: +OXYC5 PO
== END | disposition home or self-care (01) ==
LOC: LAB SHORT 17:48 → LAB 17:48
DX: L02.11 Cutaneous abscess of neck (principal)
CPT/HCPCS: 87070; 87075; 87076; 87205

== ENCOUNTER 2022-05-19 15:07 | Emergency (ER) | payer OTHER ==
[~2022-05-19] VITALS: Ht 188 cm; Wt 100.7 kg
[2022-05-19 16:21] LABS: BASOPHILS ABSOLUTE AUTO 0.04 K/mm3 (0.00-0.23); BASOPHILS PERCENT AUTO 0 % (0-2); EOSINOPHILS ABSOLUTE AUTO 0.07 K/mm3 (0.00-0.68); EOSINOPHILS PERCENT AUTO 0 % (0-6); Hematocrit 43.9 % (37.0-53.0); Hemoglobin 15.5 g/dL (13.5-17.5); IMMATURE GRAN ABSOLUTE AUTO 0.07 K/mm3 (0.00-0.10); IMMATURE GRAN PERCENT AUTO 0 % (0-1); LYMPHOCYTES ABSOLUTE AUTO 2.55 K/mm3 (0.84-5.20); LYMPHOCYTES PERCENT AUTO 14 % (21-46); MONOCYTES ABSOLUTE AUTO 0.99 K/mm3 (0.16-1.47); MONOCYTES PERCENT AUTO 5 % (4-13); Mean Corpuscular HGB Conc 35.3 g/dL (31.5-36.5); Mean Corpuscular Volume 85 fL (80-100); Mean Platelet Volume 13.5 fL (9.1-12.4); NEUTROPHILS ABSOLUTE AUTO 14.87 K/mm3 (1.96-9.15); NEUTROPHILS PERCENT AUTO 80 % (41-73); Platelet Count 164 K/mm3 (150-400); RDW Standard Deviation 39.9 fL (35.1-46.3); Red Blood Cell Count 5.17 M/mm3 (4.30-5.90); White Blood Cell Count 18.59 K/mm3 (4.00-11.30)
[2022-05-19 16:26] LABS: Source, Urine Clean Catch
[2022-05-19 16:35] LABS: Appearance, Urine Hazy (Clear); Bilirubin, Urine Neg (Neg); Blood, Urine 2+ (Neg); Color, Urine Yellow (P-Yellow); Glucose Qualitative, Urine Neg (Neg); Ketones, Urine Neg (Neg); Leukocyte Esterase, Urine 3+ (Neg); Nitrite, Urine Pos (Neg); Protein, Urine 1+ (Neg); Urobilinogen, Urine NORM (Normal)
[2022-05-19 16:40] LABS: Albumin, Blood 3.8 g/dL (3.4-5.0); Albumin/Globulin Ratio 0.9 (0.8-1.8); Bilirubin, Total 0.6 mg/dL (0.1-1.0); Bun/Creatinine Ratio 10.5 (12.0-20.0); Calcium, Blood 9.4 mg/dL (8.5-10.1); Creatinine, Blood 0.76 mg/dL (0.60-1.20); Globulin, Blood 4.2 g/dL (2.2-4.0); Potassium, Blood 3.8 mmol/L (3.5-5.5)
[2022-05-19 17:02] LABS: Bacteria Many /hpf; Hyaline Casts 0-2 /lpf (0-2); Squamous Epithelial Cells Few /hpf (Few); WBC Cast 0-2 /lpf (0); White Blood Cells, Urine TNTC /hpf (0-5)
[2022-05-19] MEDS ORDERED: CEPHALEXIN500 M1 PO (18:16)
[2022-05-19] MEDS ORDERED: Pyridium100 MG PO (18:16)
== END 2022-05-19 18:47 | disposition home or self-care (01) ==
LOC: ER 15:07
PROVIDERS: Physician Assistant
DX: N39.0 Urinary tract infection, site not specified (principal); M87.9 Osteonecrosis, unspecified; F17.210 Nicotine dependence, cigarettes, uncomplicated; Z79.899 Other long term (current) drug therapy
CPT/HCPCS: 74177; 80053; 81001; 85025; 87077; 87086; 87186; A9270; J1885; Q9967

== ENCOUNTER 2022-05-25 09:37 | Emergency (ER) | payer OTHER ==
[~2022-05-25] VITALS: Ht 188 cm; Wt 102.5 kg
[~2022-05-25 09:37] MED LIST changes: +CEPHALEXIN500 M1 PO; +Pyridium100 MG PO
[2022-05-25 11:02] LABS: Source, Urine Clean Catch
[2022-05-25 11:06] LABS: Appearance, Urine Clear (Clear); Bilirubin, Urine Neg (Neg); Blood, Urine 2+ (Neg); Color, Urine Yellow (P-Yellow); Glucose Qualitative, Urine Neg (Neg); Ketones, Urine Neg (Neg); Leukocyte Esterase, Urine Neg (Neg); Nitrite, Urine Neg (Neg); Protein, Urine Neg (Neg); Urobilinogen, Urine NORM (Normal)
[2022-05-25 11:09] LABS: BASOPHILS ABSOLUTE AUTO 0.05 K/mm3 (0.00-0.23); BASOPHILS PERCENT AUTO 0 % (0-2); EOSINOPHILS ABSOLUTE AUTO 0.08 K/mm3 (0.00-0.68); EOSINOPHILS PERCENT AUTO 1 % (0-6); Hematocrit 42.9 % (37.0-53.0); Hemoglobin 14.5 g/dL (13.5-17.5); IMMATURE GRAN ABSOLUTE AUTO 0.07 K/mm3 (0.00-0.10); IMMATURE GRAN PERCENT AUTO 1 % (0-1); LYMPHOCYTES ABSOLUTE AUTO 1.73 K/mm3 (0.84-5.20); LYMPHOCYTES PERCENT AUTO 15 % (21-46); MONOCYTES ABSOLUTE AUTO 0.79 K/mm3 (0.16-1.47); MONOCYTES PERCENT AUTO 7 % (4-13); Mean Corpuscular HGB 29.8 pg (26.0-34.0); Mean Corpuscular HGB Conc 33.8 g/dL (31.5-36.5); Mean Corpuscular Volume 88 fL (80-100); NEUTROPHILS ABSOLUTE AUTO 8.88 K/mm3 (1.96-9.15); NEUTROPHILS PERCENT AUTO 77 % (41-73); Platelet Count 143 K/mm3 (150-400); RDW Standard Deviation 41.9 fL (35.1-46.3); Red Blood Cell Count 4.87 M/mm3 (4.30-5.90)
[2022-05-25 11:16] LABS: Amorphous Light (0-Heavy); Bacteria Not Seen /hpf; Mucus Light (0-Heavy); Squamous Epithelial Cells Few /hpf (Few); White Blood Cells, Urine Not Seen /hpf (0-5)
[2022-05-25 11:23] LABS: Albumin/Globulin Ratio 0.7 (0.8-1.8); Bilirubin, Total 0.3 mg/dL (0.1-1.0); Bun/Creatinine Ratio 12.7 (12.0-20.0); Calcium, Blood 9.5 mg/dL (8.5-10.1); Creatinine, Blood 0.79 mg/dL (0.60-1.20); Globulin, Blood 4.6 g/dL (2.2-4.0); Potassium, Blood 4.4 mmol/L (3.5-5.5); Total Protein, Blood 7.6 g/dL (6.4-8.2)
[2022-05-25] MEDS ORDERED: LATUDA120 M1 PO (11:54)
[2022-05-25] MEDS ORDERED: [UNRECOGNIZED DRUG - CODE] PO (11:54)
[2022-05-25] MEDS ORDERED: OMEP20ER PO (13:28)
[2022-05-25] MEDS ORDERED: OXAYDO5 M1 PO (13:34)
[2022-05-25] MEDS ORDERED: PROBIOTIC1 EA13 PO (13:34)
== END 2022-05-25 13:45 | disposition home or self-care (01) ==
LOC: ER 09:37
PROVIDERS: Physician Assistant
DX: R10.11 Right upper quadrant pain (principal); K74.60 Unspecified cirrhosis of liver; M87.9 Osteonecrosis, unspecified; K27.9 Peptic ulcer, site unspecified, unspecified as acute or chronic, without hemorrhage or perforation; F17.210 Nicotine dependence, cigarettes, uncomplicated; Z88.6 Allergy status to analgesic agent; Z79.899 Other long term (current) drug therapy; Z87.440 Personal history of urinary (tract) infections
CPT/HCPCS: 36415; 76705; 80053; 81001; 83690; 85025; 96374; 96375; 99284-25; C9113; G0480; J2405

== ENCOUNTER 2022-05-30 10:58 | Observation (INO) | payer OTHER ==
[~2022-05-30] VITALS: Ht 188 cm; Wt 99.8 kg
[~2022-05-30 10:58] MED LIST changes: +LATUDA120 M1 PO; +OXAYDO5 M1 PO; +PROBIOTIC1 EA13 PO; +[UNRECOGNIZED DRUG - CODE] PO
[2022-05-30 11:22] LABS: BASOPHILS ABSOLUTE AUTO 0.03 K/mm3 (0.00-0.23); BASOPHILS PERCENT AUTO 0 % (0-2); EOSINOPHILS ABSOLUTE AUTO 0.02 K/mm3 (0.00-0.68); EOSINOPHILS PERCENT AUTO 0 % (0-6); Hematocrit 37.4 % (37.0-53.0); Hemoglobin 13.8 g/dL (13.5-17.5); IMMATURE GRAN ABSOLUTE AUTO 0.17 K/mm3 (0.00-0.10); IMMATURE GRAN PERCENT AUTO 1 % (0-1); LYMPHOCYTES ABSOLUTE AUTO 2.08 K/mm3 (0.84-5.20); LYMPHOCYTES PERCENT AUTO 13 % (21-46); MONOCYTES ABSOLUTE AUTO 0.57 K/mm3 (0.16-1.47); MONOCYTES PERCENT AUTO 4 % (4-13); Mean Corpuscular HGB 30.3 pg (26.0-34.0); Mean Corpuscular HGB Conc 36.9 g/dL (31.5-36.5); Mean Corpuscular Volume 82 fL (80-100); Mean Platelet Volume 12.1 fL (9.1-12.4); NEUTROPHILS PERCENT AUTO 83 % (41-73); Platelet Count 138 K/mm3 (150-400); RDW Coefficient Variation 12.2 % (11.7-14.2); RDW Standard Deviation 36.9 fL (35.1-46.3); Red Blood Cell Count 4.55 M/mm3 (4.30-5.90); White Blood Cell Count 16.37 K/mm3 (4.00-11.30)
[2022-05-30 11:47] LABS: Albumin/Globulin Ratio 0.7 (0.8-1.8); Bilirubin, Total 0.5 mg/dL (0.1-1.0); Bun/Creatinine Ratio 5.7 (12.0-20.0); Calcium, Blood 8.5 mg/dL (8.5-10.1); Creatinine, Blood 0.52 mg/dL (0.60-1.20); Globulin, Blood 4.2 g/dL (2.2-4.0); Magnesium, Blood 1.3 mg/dL (1.6-2.4); Potassium, Blood 3.2 mmol/L (3.5-5.5); Thyroid Stimulating Hormone 2.65 uIU/mL (0.360-4.800); Total Protein, Blood 7.2 g/dL (6.4-8.2)
[2022-05-30 12:04] LABS: Source, Urine Clean Catch
[2022-05-30 12:11] LABS: Appearance, Urine Clear (Clear); Bilirubin, Urine Neg (Neg); Blood, Urine Neg (Neg); Glucose Qualitative, Urine Neg (Neg); Ketones, Urine Neg (Neg); Leukocyte Esterase, Urine Neg (Neg); Nitrite, Urine Neg (Neg); Protein, Urine Neg (Neg); Urobilinogen, Urine NORM (Normal)
[2022-05-30 12:51] LABS: U Amphetamine Screen Not Detected; U Barbituate Screen Not Detected; U Benzodiazapine Screen DETECTED; U Buprenorphine Screen Not Detected; U Cannabinoids Screen DETECTED; U Cocaine Screen Not Detected; U Methadone Screen Not Detected; U Methamphetamine Screen Not Detected; U Opiates Screen Not Detected; U Oxycodone Screen Not Detected; U Phencyclidine Screen Not Detected; U Propoxyphene Screen Not Detected
[2022-05-30 13:04] LABS: Color, Urine Pale Yellow (P-Yellow)
[2022-05-30 13:26] LABS: Influenza A, PCR NEGATIVE (NEGATIVE); Influenza B, PCR NEGATIVE (NEGATIVE); Resp Syncytial Virus, PCR NEGATIVE (NEGATIVE); SARS-Cov-2 (COVID-19) PCR, MMC NEGATIVE (NEGATIVE)
[2022-05-30 16:19] LABS: International Normalized Ratio 1.02; Prothrombin Time Results 10.7 Sec (9.7-11.5)
--- NOTE | 2022-05-30 17:59 | NUR ---
RECEIVED REPORT FROM RN IN ED @1800
--- NOTE | 2022-05-30 18:47 | NUR ---
ACID REFLUX DR GONZALEZ NOTIFED OF PT HUSSAIN. PT TAKES TUMS AT HOME FOR THIS. ORDER RECIEVED AND PLACED FOR TUMS.
[2022-05-30] MEDS ORDERED: CAPLYTA42 MG PO (19:21)
[2022-05-30] MEDS ORDERED: Naltrexone HCl50 MG PO (19:23)
[2022-05-30] MEDS ORDERED: VRAYLAR1.5 MG PO (19:24)
[2022-05-30] MEDS ORDERED: Ativan1 MG PO (19:25)
[2022-05-30] MEDS ORDERED: HYDHCL25 PO (19:26)
[2022-05-30] MEDS ORDERED: CELEXA10 MG PO (19:27)
[2022-05-31 05:12] LABS: Hematocrit 40.2 % (37.0-53.0); Mean Corpuscular HGB 29.6 pg (26.0-34.0); Mean Corpuscular HGB Conc 34.8 g/dL (31.5-36.5); Mean Corpuscular Volume 85 fL (80-100); Mean Platelet Volume 12.7 fL (9.1-12.4); Platelet Count 171 K/mm3 (150-400); RDW Standard Deviation 39.2 fL (35.1-46.3); Red Blood Cell Count 4.73 M/mm3 (4.30-5.90); White Blood Cell Count 15.48 K/mm3 (4.00-11.30)
--- NOTE | 2022-05-31 05:25 | NUR ---
SHIFT SUMMARY PATIENT HAS BEEN ALERT AND ORIENTED. PATIENT HAS BEEN IND IN ROOM. PATIENT HAS BEEN PLEASENT AND COOPERATIVE WITH CARE. PATIENT HAS HAD NO ACUTE EVENTS THIS SHIFT. VITAL SIGNS REVIEWED. PATIENT HAS NOT COMPLAINED OF PAIN, NAUSEA, SOB OR VOMITTING THIS SHIFT. BED IN LOCKED AND LOWEST POSITION. CALL LIGHT IN PLACE. WILL MONITOR UNTIL SHIFT CHANGE.
[2022-05-31 05:30] LABS: Albumin/Globulin Ratio 0.7 (0.8-1.8); Bilirubin, Total 0.4 mg/dL (0.1-1.0); Calcium, Blood 8.8 mg/dL (8.5-10.1); Creatinine, Blood 0.67 mg/dL (0.60-1.20); Globulin, Blood 4.3 g/dL (2.2-4.0); Magnesium, Blood 1.8 mg/dL (1.6-2.4); Potassium, Blood 3.9 mmol/L (3.5-5.5); Total Protein, Blood 7.3 g/dL (6.4-8.2)
[2022-05-31] MEDS ORDERED: AMOCLA875 PO (12:30)
[2022-05-31] MEDS ORDERED: Nicoderm Cq1 EAC1 TOP (12:31)
--- NOTE | 2022-05-31 13:30 | NUR ---
PT A/O X4. CONCERNS BROUGHT UP REGARDING HOME MEDICATIONS. PT DC'D HOME AND INSTRUCTED TO FOLLOW UP WITH SURGEON AND PRIMARY CARE DOCTOR.
== END 2022-05-31 13:12 | disposition home or self-care (01) ==
LOC: ER 10:58 → MEDS 10:59
PROVIDERS: Nurse Practitioner Acute Care; Student in an Organized Health Care Education/Training Program; ADMIT Family Medicine
DX: E87.1 Hypo-osmolality and hyponatremia (principal); E83.42 Hypomagnesemia; E87.6 Hypokalemia; D72.829 Elevated white blood cell count, unspecified; L02.11 Cutaneous abscess of neck; F17.210 Nicotine dependence, cigarettes, uncomplicated; K70.30 Alcoholic cirrhosis of liver without ascites; F31.9 Bipolar disorder, unspecified; D75.839 Thrombocytosis, unspecified; Z88.6 Allergy status to analgesic agent; Z79.899 Other long term (current) drug therapy; Z20.822 Contact with and (suspected) exposure to COVID-19
CPT/HCPCS: 0241U; 36415; 76536; 80053; 81003; 82140; 82533; 82570; 83690; 83735; 83880; 83930; 83935; 84295; 84300; 84443; 85025; 85027; 85610; 87070; 87205; 93005; 93010; 96365; 96366; 96368; 96372; 99285-25; A9270; G0378; G0480; J1650; J3475; J3480; J7030

== ENCOUNTER → 2024-05-26 | Outpatient (CLI) | payer OTHER ==
[~2024-05-26] MED LIST changes: +Ativan1 MG PO; +CAPLYTA42 MG PO; +CELEXA10 MG PO; +CEPH500 PO; +HYDHCL25 PO; +Naltrexone HCl50 MG PO; +Nicoderm Cq1 EAC1 TOP; +QUET200 PO; +VRAYLAR1.5 MG PO
== END ==
LOC: LAB 12:00
DX: Z51.81 Encounter for therapeutic drug level monitoring (principal); Z79.899 Other long term (current) drug therapy
CPT/HCPCS: G0480; G0481